=== PATIENT | female | born 1975 ===

== ENCOUNTER 2016-07-07 07:26 | Inpatient (IN) | payer OTHER ==
--- NOTE | 2016-07-06 11:19 | Anesthesia Consultation ---
Anesthesia Consult and Med Hx Date of service: 07/06/16 - Airway Anesthetic Teeth Evaluation: Good ROM Head & Neck: Adequate Mental/Hyoid Distance: Adequate Mallampati Class: Class II Intubation Access Assessment: Probably Good - Pulmonary Exam CTA: Yes - Cardiac Exam Cardiac Exam: RRR - Pre-Operative Health Status ASA Pre-Surgery Classification: ASA1 (no previous general anesthesia - has had spinal or epidural for ) Proposed Anesthetic Plan: General Nerve Block: TAP (Discussed possibilty of TAP block;) - Central Nervous System Hx Psychiatric Problems: No - Hematic Hx Anemia: Yes - Other Systems Hx Alcohol Use: Yes (occas) Hx Cancer: No
[2016-07-06 11:20] LABS: Hematocrit 33.2 % (30.3-42.9); Hemoglobin 10.3 gm/dl (10.1-14.3); Mean Corpuscular HGB Conc 31 % (30-34); Mean Corpuscular Hemoglobin 22 pg (28-32); Mean Corpuscular Volume 71 fl (79-97); Platelet Count 299 K/mm3 (140-440); Red Blood Count 4.71 M/mm3 (3.65-5.03); White Blood Count 4.9 K/mm3 (4.5-11.0)
[~2016-07-07 07:26] MED LIST: ACD-A IV ONE; LACTATED RINGERS 1,000 ML IV SCH; PEPCID IV NR; VERSED IV NR
[2016-07-07] MEDS ORDERED: NACL BACTERIOSTATIC INFILTRATI ONE (07:59)
--- NOTE | 2016-07-07 08:09 | History and Physical Report ---
History of Present Illness Date of examination: 07/07/16 Date of admission: 07/07/16 07:26 Chief complaint: Symptomatic fibroid uterus History of present illness: Pt is a 40yo HF LMP 06/24/16 presents for surgical evaluation and treatment of fibroid uterus. Pelvic u/s showed an enlarged uterus 10.26 x 7.08 x 5.47cm with a submucosal fibroid and a left ovarian mass. She also complains of prolonged heavy vaginal bleeding requiring blood transfusions and pelvic pain. She is therefore scheduled for a Total Abdominal Hysterectomy with Left Salpingooophorectomy. 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 History: fibroids Social history: no significant social history, Medications and Allergies Allergies Allergy/AdvReac Type Severity Reaction Status Date / Time No Known Allergies Allergy Unverified 07/05/16 14:44 Home Medications Medication Instructions Recorded Confirmed Last Taken Type No Known Home Medications [No 07/05/16 07/05/16 Unknown History Reported Home Medications] Active Meds: Active Medications Famotidine (Pepcid) 20 mg IV PREOP NR Stop: 07/07/16 23:01 Lactated Ringer's (Lactated Ringers) 1,000 mls @ 125 mls/hr IV DIRECT MANJIT Stop: 07/07/16 23:59 Midazolam HCl (Versed) 2 mg IV PREOP NR Stop: 07/07/16 23:59 Review of Systems All systems: negative - Vital Signs Vital signs: Vital Signs Temp Pulse Resp BP 97.6 F 70 14 124/88 07/06/16 10:10 07/06/16 10:10 07/06/16 10:10 07/06/16 10:10 Temp Pulse Resp BP Pulse Ox 97.6 F 70 14 124/88 07/06/16 10:10 07/06/16 10:10 07/06/16 10:10 07/06/16 10:10 - Physical Exam Breasts: Positive: deferred Cardiovascular: Regular rate Lungs: Positive: Clear to auscultation Abdomen: Positive: normal appearance, soft Genitourinary (Female): Positive: normal external genitalia Cervix: Positive: lesion Uterus: Positive: enlarged Adnexa: right: normal, left: mass, tenderness Extremities: Positive: normal Results Result Diagrams: 07/06/16 10:20 Abnormal lab results 07/06/16 Range/Units 10:20 MCV 71 L (79-97) fl MCH 22 L (28-32) pg RDW 18.0 H (13.2-15.2) % All other labs normal. Ultrasound: report reviewed Assessment and Plan - Patient Problems (1) Fibroid uterus Diagnosis Date: 07/07/16 Current Visit: Yes Status: Acute Plan to address problem: A: Symptomatic fibroid uterus Complex left ovarian cyst P: Admit for a Total Abdominal Hysterectomy with Bilateral Salpingectomy and Left Ovarian Cystectomy or possible Oophorectomy (2) Complex cyst of left ovary Diagnosis Date: 07/07/16 Current Visit: Yes Status: Acute
[2016-07-07] MEDS ORDERED: XYLOCAINE MPF 2% ONE (08:39)
[2016-07-07] MEDS ORDERED: ZEMURON IV ONE ×2 (08:39→10:39)
[2016-07-07] MEDS ORDERED: DIPRIVAN 10 MG/ML IV ONE (08:39)
[2016-07-07] MEDS ORDERED: DILAUDID ONE (08:39)
[2016-07-07] MEDS ORDERED: DECADRON ONE (08:46)
[2016-07-07] MEDS ORDERED: ZOFRAN ONE (08:46)
[2016-07-07] MEDS ORDERED: ANCEF/STERILE WATER 2 GM/20 ML 20 ML IV SCH (09:00)
--- NOTE | 2016-07-07 09:00 | Anesthesia Day of Surgery ---
Anesthesia Day of Surgery - Day of Surgery Patient Examined: Yes Patient H&P Reviewed: Yes Patient is NPO: Yes
[2016-07-07] MEDS ORDERED: ROBINUL ONE (09:11)
[2016-07-07] MEDS ORDERED: SUBLIMAZE ONE ×2 (09:24→10:53)
[2016-07-07] MEDS ORDERED: NACL 0.9% IR ONE (09:59)
[2016-07-07] MEDS ORDERED: ZOFRAN IV PRN ×2 (10:30→11:24)
[2016-07-07] MEDS ORDERED: BLOXIVERZ ONE (10:39)
[2016-07-07] MEDS ORDERED: TORADOL ONE (10:40)
[2016-07-07] MEDS ORDERED: REGLAN IV PRN (11:24)
[2016-07-07] MEDS ORDERED: NARCAN 0.4 MG/1 ML IV PRN (11:24)
[2016-07-07] MEDS ORDERED: BENADRYL IV PRN (11:24)
[2016-07-07] MEDS ORDERED: MILK OF MAGNESIA PO PRN (11:27)
[2016-07-07] MEDS ORDERED: PERCOCET 5/325 PO PRN (11:27)
--- NOTE | 2016-07-07 11:53 | Operative Report ---
Operative Report Operative Report: Date of procedure: 07/07/2016 Pre-operative diagnosis: 1. Symptomatic fibroid uterus 2. Complex left ovarian mass Post-operative diagnosis: Same with complex right ovarian mass Procedure name(s): 1. Total abdominal hysterectomy 2. Bilateral salpingectomy 3. Right ovarian cystectomy Surgeon: Shakir Aldana MD [employer]: None Anesthesia: General endotracheal intubation by Dr. Quiroz EBL: 350 mL's with 125 mL's returned by [employer] Findings: A 12 week size multi-myomatous uterus with bilaterally enlarged tortuous fallopian tubes. The right ovary was complex and multicystic, and the left ovary was normal and adherent to the posterior uterine wall. The bowel was also adherent to the posterior cervix and the cul-de-sac. Procedure: After the patient was first correctly identified and after general anesthesia was administered she was prepped and draped in usual in the usual sterile fashion and placed in the dorsolithotomy position. The skin knife was used to make a transverse skin incision. The incision was extended down to the layer of the fascia which was nicked in the midline and extended laterally using Bovie cautery. The rectus muscles were dissected off the rectus fascia both superiorly and inferiorly, the rectus bellies in the midline and the peritoneum was entered under direct visualization. Exploration of the pelvic organs found the uterus to be enlarged and the tubes enlarged and tortuous bilaterally. The right ovary was complex and multicystic appeared to have an endometrioma. The left ovary was normal but adherent to the posterior uterine wall. Next the bowels were packed back and the round ligaments were grasped clamped cut and suture ligated. The right fallopian tube was excised along the mesosalpinx and included the cystic portion of the right ovary. The utero-ovarian ligaments were doubly clamped cut and suture ligated, thus freeing the portion of the right ovary from the right uterine sidewall. The same procedure was performed on the left. The left fallopian tube was excised along the mesosalpinx. The left round ligament was grasped clamped cut and suture ligated, and the left utero-ovarian ligaments were doubly clamped cut and suture ligated thus freeing the left ovary from the left uterine sidewall. The uterine vessels were then skeletonized bilaterally, and the bladder flap was taken down anteriorly. The uterine vessels were then doubly clamped cut and suture ligated bilaterally, and the cardinal ligaments were sequentially clamped cut and suture ligated down to the level of the uterosacral ligaments. The bowel was bluntly dissected off the posterior cervix in the cul-de-sac. The cervix was then amputated from the vaginal cuff and the specimen was handed off the surgical field. The vaginal cuff was then made hemostatic using several sutures of 0 Vicryl suture in a [id number] configuration. After excellent hemostasis was assured copious amounts of irrigation was then performed. The retroperitoneum was reapproximated using 3-0 Vicryl suture in a running interlocking fashion. The Tisseel sealant was then sprayed across the vaginal cuff and the superior pedicles bilaterally and after excellent hemostasis was assured the procedure was considered complete. All instruments removed from abdomen, and the peritoneum was closed using 0 Vicryl suture in a running interlocking fashion and the rectus muscles were also loosely reapproximated using 0 Vicryl suture in a [id number] configuration. The fascia was then reapproximated using #0 Vicryl suture in a running interlocking fashion, the subcutaneous layer made hemostatic using Bovie cautery and the skin edges reapproximated using 4-0 Vicryl suture in a subcuticular fashion. Patient tolerated the procedure well was transported to recovery room in stable condition.
[2016-07-07] MEDS ORDERED: MORPHINE PCA 30MG/30ML IV SCH (12:00)
[2016-07-07] MEDS ORDERED: NACL 0.9% 1000 ML 1,000 ML IV SCH (12:00)
[2016-07-07] MEDS ORDERED: LACTATED RINGERS 1,000 ML ONE (12:02)
[2016-07-07] MEDS ORDERED: ZOFRAN IM ONE (12:09)
[2016-07-07] MEDS: DILAUDID IV PRN ×3 (12:13→13:10)
--- NOTE | 2016-07-07 12:23 | Post Anesthesia Evaluation ---
- Post Anesthesia Evaluation Patient Participated: Yes Airway Patent: Yes Stable Respiratory Function: Yes Temp > 96.8F: Yes Pain Manageable: Yes Adequeate Hydration: Yes Anesthesia Complications: No Block Receding Appropriately: Not Applicable
--- NOTE | 2016-07-07 13:53 | Admit Criteria Form ---
Admission Criteria Documentation: AMBULATORY SURGERY EXCEPTION CRITERIA Ambulatory Surgery Exception Criteria ( Place 'X' for any and all applicable criteria): Surgery or procedure performed on ambulatory basis may require inpatient stay for[A] ANY ONE of the following(1)(2)(3)(4)(5)(6)(7)(8)(9): [X] I. A preoperative situation, condition, or finding that warrants inpatient stay as indicated by ANY ONE of the following: [] a) Inpatient care needed because of severity of a disease or condition rather than the surgery (eg, severe cardiac or respiratory disease, severe infection) (15) (16 ) (17) (18) [] b) Emergent procedure (eg, angioplasty for acute ischemia)(19) [X] c) Complex surgical approach or situation as indicated by ANY ONE of the following(3): [X] i) Open approach needed instead of usual endoscopic, transcatheter, or other less invasive procedure [] ii) Difficult approach because of previous operation [] iii) Airway monitoring required after open neck procedures(20)(21) [X] iv) Large mass requiring unusually extensive dissection [] v) Additional complicating feature requiring inpatient care (eg, drain management)(22(23): [] d) Major surgery in a pt with high anesthetic risk as indicated by ANY ONE of the following (2)(3)(5)(7)(8): [] i) ASA risk class III or higher (severe systemic disease impairing function) [D] [] ii) Advanced age (eg, older than 85 years)(14)(24) [] iii) Symptomatic heart failure(25) [] iv) Symptomatic asthma or COPD(8)(21) [] v) Morbid obesity with hemodynamic or respiratory problems(20)( 21)(26)(27) [] vi) Obstructive sleep apnea(20)(21) [] vii) Former premature infants who are younger than 60 weeks [] viii) High risk for severe postoperative abnormalities (eg, severe postoperative hypocalcemia after parathyroidectomy for severe hyperparathyroidism)(27)( 28) [] ix) Unstable angina(25) [] e) Drug-related risk requiring inpatient stay as indicated by ANY ONE of the following(5)(10)(14)(32)(33) [] i) Procedure requires discontinuing drugs or other therapy (eg , antiarrhythmic medication, antiseizure medication), which necessitates inpatient observation or treatment.(18)(31) [] ii) Major surgery and high risk drug use as indicated by ANY ONE of the following: [] 1) Active abuse of cocaine or similar drug [] 2) Monoamine oxidase inhibitor use [] 3) Other drug identified as posing risk [] f) Inadequate outpatient care situation as indicated by ANY ONE of the following(5)(10)(14)(32)(33) [] i) Patient lives remote from medical facility and procedure has urgent complication potential, and temporary nearby residence cannot be arranged [] ii) Patient will have postprocedure incapacitation and inadequate assistance at home, or alternative level of care cannot be arranged. [] iii) Patient will have long general anesthesia or procedure side effect resolution time, and competent person to stay with patient on first postoperative night at home or alternative level of care cannot be arranged. []iv) Other inadequate outpatient situation that cannot be handled by other means [] II. A perioperative event, condition, or finding that warrants inpatient stay as indicated by ANY ONE of the following (1)(2)(3): [] a) Inadequate physiologic recovery: cardiovascular, respiratory, or hemodynamic status not normal or near preoperative baseline(18) [] b) Hemodynamic instability [] c) Patient not alert with near normal or baseline mental status [] d) Temperature not normal or as expected and not appropriate for outpatient treatment of condition [] e) Ambulatory or appropriate activity level status not yet achieved post procedure [E](34)(35)(36) [] f) Operative site not appropriate (eg, unexpected or excessive drainage or bleeding) [] g) Postoperative effects not resolved or adequately managed (eg, significant pain or vomiting not appropriate for outpatient or next level of care)(10)(12) [] h) Complicating features requiring inpatient care as indicated by ANY ONE of the following(37): [] i) Severe complications of procedure (eg, bowel injury, airway compromise, vascular injury,severe hemorrhage) [] ii) Extensive (eg, dissection far beyond usual scope of procedure ) or prolonged (eg, 120 minutes beyond usual) surgery needed requiring inpatient postoperative care [] iii) Conversion to an open or complex procedure that requires inpatient care (eg, open vs laparoscopic cholecystectomy, abdominal vs vaginal hysterectomy)(38) [] iv) Comorbid condition or test result identified during or post procedure that requires inpatient care (7) [] v) Malignant hyperthermia(30) [] vi) Other complicating feature requiring inpatient care(22)(23) Inpatient stay may be needed until ALL of the following are present (1)(2)(3)(4) (5)(6)(10)(14)(33)(40): []a) Physiologic recovery: cardiovascular, respiratory, and hemodynamic status normal or near preoperative baseline []b) Hemodynamic stability []c) Patient alert, with near normal or baseline mental status []d) Temperature appropriate: patient afebrile or temperature appropriate for outpt treatment of condition []e) Activity level appropriate: ambulatory or appropriate activity level post procedure []f) Operative site appropriate as indicated by ALL of the following: []i) Site dry or with expected drainage []ii) Any blood noted is as expected for procedure. []g) Postoperative effects resolved or managed as indicated by ALL of the following: []i) Pain management appropriate for outpatient (or next level of) care(10) []ii) Minimal nausea and vomiting: if present, successfully treated with oral medication(12) []iii) Headache, dizziness, or drowsiness (if present) are mild. []h) Voiding status acceptable as indicated by ANY ONE of the following: []i) Voiding spontaneously []ii) No voiding but instructions given for follow-up in 6 to 8 hours []iii) Urinary catheter in place, and instructions given for follow-up []i) Complicating features requiring inpatient care manageable at a lower level of care(37) []j) Comorbid conditions manageable at a lower level of care(37) The original [facility] content created by [employer] has been revised. The portions of the content which have been revised are identified through the use of italic text or in bold, and [facility] has neither reviewed nor approved the modified material. All other unmodified content is copyright [facility]. Please see references footnoted in the original [facility] edition 2016 Admission Criteria Met: Yes
[2016-07-07] MEDS: ANCEF/NS 1 GM/50 ML 50 ML IV SCH (17:17)
[2016-07-07] MEDS: D5LR 1,000 ML IV SCH (17:18)
[2016-07-07] MEDS: TORADOL IV SCH (20:25)
[2016-07-07] MEDS: NORCO 5/325 PO PRN (23:45)
[2016-07-08] MEDS: D5LR 1,000 ML IV SCH ×2 (01:17→10:27)
[2016-07-08] MEDS: ANCEF/NS 1 GM/50 ML 50 ML IV SCH (01:21)
[2016-07-08] MEDS: TORADOL IV SCH ×3 (02:08→21:19)
[2016-07-08 06:23] LABS: Hematocrit 25.4 % (30.3-42.9); Hemoglobin 7.8 gm/dl (10.1-14.3)
[2016-07-08] MEDS: NORCO 5/325 PO PRN (06:40)
--- NOTE | 2016-07-08 09:26 | Progress Note ---
Assessment and Plan - Patient Problems (1) Fibroid uterus Diagnosis Date: 07/07/16 Current Visit: Yes Status: Resolved (2) Complex cyst of left ovary Diagnosis Date: 07/07/16 Current Visit: Yes Status: Resolved (3) S/P MARY (total abdominal hysterectomy) Diagnosis Date: 07/08/16 Current Visit: Yes Status: Acute Plan to address problem: A: S/P MARY Right ovarian cystectomy - POD #1 Doing well Post surgical anemia - asymptomatic P: Continue RPOC Encourage ambulation Anticipate discharge in 24-48hrs (4) Postoperative anemia Diagnosis Date: 07/08/16 Current Visit: Yes Status: Acute Subjective - Subjective Date of service: 07/08/16 Principal diagnosis: S/P MARY R Cystectomy - POD #1 Interval history: Pt is feeling well without complaints. Tolerating a liquid diet without nausea or vomiting. No flatus yet. Patient reports: appetite normal, voiding normally, pain well controlled, ambulating normally, no flatus, no bowel movement, no nauseated Objective - Vital Signs Latest vital signs: Vital Signs Temp Pulse Pulse Resp BP BP Pulse Ox 07/08/16 04:30 98.7 F 80 20 107/65 07/08/16 00:00 98.4 F 73 20 114/64 07/07/16 20:00 98.9 F 97 H 20 124/68 07/07/16 16:00 98.3 F 72 20 125/78 07/07/16 15:14 98.1 F 90 18 118/78 07/07/16 13:45 69 15 120/72 98 07/07/16 13:30 68 16 120/67 98 07/07/16 13:15 98.6 F 66 16 116/67 98 07/07/16 13:00 69 16 124/75 98 07/07/16 12:45 62 16 127/64 98 07/07/16 12:30 97.4 F L 61 16 120/65 98 07/07/16 12:15 63 16 129/66 98 07/07/16 12:00 62 13 139/72 99 07/07/16 11:45 63 15 135/72 99 07/07/16 11:43 60 15 118/60 100 07/07/16 11:37 63 15 120/69 100 07/07/16 11:32 98.2 F 62 15 124/62 100 Intake and Output 07/07/16 07/08/16 07/08/16 22:59 06:59 14:59 Intake Total 500 1120 Output Total 300 1600 Balance 200 -480 Intake: IV 500 1000 Ancef/Ns 1 gm/50 ml 50 ml 50 @ 100 mls/hr IV Q8H MANJIT Rx#:[id number] D5lr 1,000 ml @ 125 mls/ 375 950 hr IV DIRECT [facility] Rx#: [id number] Lactated Ringers 1,000 ml 125 As .[address] [facility] Rx#:[id number] Oral 120 Output: Urine 300 1600 Indwelling Catheter 300 1200 Void 400 Other: Total, Intake Amount 120 Total, Output Amount 300 400 Voiding Method Indwelling Catheter - Exam Cardiovascular: Present: Regular rate Lungs: Present: Clear to auscultation Abdomen: Present: normal appearance, soft Extremities: Present: normal Incision: Present: normal, dry, intact, dressed - Labs Labs: Abnormal lab results 07/08/16 Range/Units 05:47 Hgb 7.8 L (10.1-14.3) gm/dl Hct 25.4 L D (30.3-42.9) % Laboratory Tests 07/06/16 07/06/16 07/06/16 10:20 10:20 10:20 WBC 4.9 RBC 4.71 Hgb 10.3 Hct 33.2 MCV 71 L MCH 22 L MCHC 31 RDW 18.0 H Plt Count 299 HCG, Qual Negative Blood Type O POSITIVE Antibody Screen Negative 07/08/16 05:47 WBC RBC Hgb 7.8 L Hct 25.4 L D MCV MCH MCHC RDW Plt Count HCG, Qual Blood Type Antibody Screen
[2016-07-09] MEDS: TORADOL IV SCH ×2 (03:14→05:20)
--- NOTE | 2016-07-09 07:49 | Progress Note ---
Assessment and Plan POD # 2 s/p MARY -Doing well P: -Discharge home -Follow-up in clinic in 2 weeks - Patient Problems (1) S/P MARY (total abdominal hysterectomy) Diagnosis Date: 07/08/16 Current Visit: Yes Status: Acute Subjective - Subjective Date of service: 07/09/16 Principal diagnosis: S/P MARY R Cystectomy - POD #2 Interval history: Patient seen and examined, stable doing well. Ambulating without difficulty, tolerating oral intake Patient reports: appetite normal, voiding normally, pain well controlled, flatus , no dizzy ambulation Objective - Vital Signs Latest vital signs: Vital Signs Temp Pulse Resp BP 07/09/16 04:15 97.5 F L 74 16 108/63 07/09/16 00:26 98.5 F 78 18 99/56 07/08/16 20:20 98.4 F 78 20 111/60 07/08/16 16:30 98.5 F 80 16 108/60 07/08/16 11:50 98.4 F 76 18 92/58 07/08/16 08:28 98.9 F 100 H 20 100/68 Intake and Output 07/08/16 07/09/16 07/09/16 22:59 06:59 14:59 Intake Total 610 1350 Output Total 500 Balance 110 1350 Intake: IV 250 D5lr 1,000 ml @ 125 mls/ 250 hr IV DIRECT MANJIT Rx#: [id number] Oral 360 1350 Output: Urine 500 Void 500 Other: Total, Intake Amount 360 1350 Total, Output Amount 500 Voiding Method Toilet Toilet # Voids Void 4 Weight 70.505 kg - Exam Abdomen: Present: normal appearance, soft. Absent: distention, tenderness, guarding, rigidity Extremities: Present: normal
--- NOTE | 2016-07-09 07:53 | Discharge Summary ---
Providers - Providers Date of Admission: 07/07/16 07:26 Date of discharge: 07/09/16 Attending physician: SG CEJA Primary care physician: RN [facility] Hospitalization Reason for admission: other (AUB/HMB, Fibroid) Procedure: other (Total abd hysterectomy) Incision: dry, intact Discharge diagnosis: other (s/p Total Abd hysterectomy) Hospital course: Uncomplicated hospital course, she is discharged home in stable condition Condition at discharge: Good Disposition: DISCHARGED TO HOME OR SELFCARE - Discharge Diagnoses (1) S/P MARY (total abdominal hysterectomy) Status: Acute Plan - Discharge Medications Prescriptions: Ibuprofen [Motrin 600 MG tab] 600 mg PO Q8H PRN #30 tablet PRN Reason: Pain Multivitamin with Iron [Multivitamins with Iron] 1 each PO DAILY #30 tablet oxyCODONE /ACETAMINOPHEN [Percocet 5/325] 1 tab PO Q6HR PRN #30 tablet PRN Reason: Pain - Provider Discharge Summary Activity: no sex for 6 weeks, no heavy lifting 4 weeks, no strenuous exercise Diet: routine Additional instructions: [] Smoking cessation referral if applicable(refer to patient education folder for contact #) [] Refer to [facility]'s [facility] Booklet Call your doctor immediately for: * Fever > 100.5 * Heavy vaginal bleeding ( >1 pad per hour) * Severe persistent headache * Shortness of breath * Reddened, hot, painful area to leg or breast * Drainage or odor from incision. * Keep incision clean and dry at all times and follow doctor's instructions regarding bathing/showering - Follow up plan Follow up: CHUCHO FELTON MD [Primary Care Provider] - 7 Days RL NOONAN MD [Staff Physician] - 14 Days
[2016-07-09 08:48] VITALS: BP 112/65
== END 2016-07-09 09:00 | disposition home or self-care (01) | DRG 743 ==
LOC: 3A 07:26 → OB 12:12
PROVIDERS: ADMIT Obstetrics & Gynecology; ATTEND Obstetrics & Gynecology
PROC: 0UT90ZZ Resection of Uterus, Open Approach (ICD-10-PCS; principal; 2016-07-07)
PROC: 0UTC0ZZ Resection of Cervix, Open Approach (ICD-10-PCS; 2016-07-07)
PROC: 0UB70ZZ Excision of Bilateral Fallopian Tubes, Open Approach (ICD-10-PCS; 2016-07-07)
PROC: 0UB00ZZ Excision of Right Ovary, Open Approach (ICD-10-PCS; 2016-07-07)
DX: D25.9 Leiomyoma of uterus, unspecified (principal); N83.202 Unspecified ovarian cyst, left side; D64.9 Anemia, unspecified
CPT/HCPCS: 36415; 84703; 85014; 85018; 85027; 86850; 86900; 86901; 88307; C9250; J0690; J1100; J1170; J1885; J2250; J2405; J2704; J2710; J2765; J3010; J7120; J7121